=== PATIENT | female | born 1980 | race Two or more races ===

== ENCOUNTER 2018-08-01 23:49 | Emergency (ER) | payer OTHER ==
[~2018-08-01] VITALS: Ht 160 cm; Wt 60.2 kg
[2018-08-01 23:52] VITALS: BP 132/80
--- NOTE | 2018-08-02 00:31 | NUR ---
PT. SITTING IN W/C IN LOBBY WITH BY HER SIDE. EVEN, NON-LABORED RESPIRATIONS. SKIN PWD. NADN.
--- NOTE | 2018-08-02 01:10 | NUR ---
PT. IN LOBBY RESTING ON W/C WITH EYES CLOSED. PT. WITH NADN. SKIN REMAINS PWD. RESPIRATIONS EVEN, NON-LABORED. REMAINS AT PT. SIDE.
--- NOTE | 2018-08-02 01:23 | NUR ---
pt signed lwbs/ama form.
== END 2018-08-02 01:24 | disposition left against medical advice (07) ==
LOC: ED 08-02 01:18
DX: F41.9 Anxiety disorder, unspecified (principal); Z53.21 Procedure and treatment not carried out due to patient leaving prior to being seen by health care provider
CPT/HCPCS: 93005; 99281